=== PATIENT | female | born 1990 | race American Indian/Alaskan Native ===

== ENCOUNTER 2019-03-17 05:31 | Inpatient (IN) | payer MEDICAID, OTHER, SELFPAY ==
[~2019-03-17 05:31] MED LIST: Citric Acid/Sodium Citrate Solution 30 ML Cup PO ONE; Metoclopramide 10 MG/2 ML SDV IVPUSH ONE; Nalbuphine 10 MG/ML Syringe IVPUSH PRN; Oxytocin/Lactated Ringers 10 UNIT/1,000 ML BAG IV SCH; Sodium Chloride 0.9% 10 ML Syringe FLUSH PRN; ceFAZolin 2 GM in Premix Bag 1 BAG IV ONE
[2019-03-17] MEDS ORDERED: Bupivacaine 0.5% 30 ML SDV ONE (06:53)
[2019-03-17] MEDS ORDERED: Metoclopramide 10 MG/2 ML SDV ONE (07:18)
[2019-03-17] MEDS ORDERED: Citric Acid/Sodium Citrate Solution 30 ML Cup ONE (07:18)
[2019-03-17] MEDS: Lactated Ringers 1,000 ML IV SCH (07:22)
[2019-03-17] MEDS ORDERED: Morphine PF 10 MG/10 ML SDV ONE (07:31)
[2019-03-17] MEDS ORDERED: Ketorolac 30 MG/ML SDV ONE (07:31)
[2019-03-17] MEDS ORDERED: Ondansetron 4 MG/2 ML SDV ONE (07:31)
[2019-03-17] MEDS ORDERED: Lactated Ringers 2,000 ML ONE (07:31)
[2019-03-17] MEDS ORDERED: Oxytocin 10 Units/1 ML SDV ONE (07:31)
[2019-03-17] MEDS ORDERED: ceFAZolin 1 GM Vial ONE (07:31)
[2019-03-17] MEDS ORDERED: Phenylephrine/Normal Saline 100 MCG/ML 10 ML Syringe ONE (08:22)
[2019-03-17] MEDS ORDERED: fentaNYL 100 MCG/2 ML SDV ONE (08:26)
[2019-03-17] MEDS ORDERED: Dexamethasone 4 MG/ML SDV ONE (08:27)
[2019-03-17] MEDS ORDERED: Ondansetron 4 MG/2 ML SDV IVPUSH PRN ×2 (08:52→17:48)
[2019-03-17] MEDS ORDERED: diphenhydrAMINE 50 MG/ML SDV IVPUSH PRN ×2 (08:52→10:23)
[2019-03-17] MEDS ORDERED: fentaNYL 100 MCG/2 ML SDV IVPUSH PRN (08:52)
--- NOTE | 2019-03-17 08:52 | PCM.PREANE ---
Preanesthetic Assessment - Anesthesia/Transfusion/Family Hx Anesthesia History: Prior Anesthesia Without Reaction Family History of Anesthesia Reaction: No Transfusion History: No Prior Transfusion(s) - Review of Systems General: No Symptoms Pulmonary: No Symptoms Cardiovascular: No Symptoms Gastrointestinal: No Symptoms Neurological: No Symptoms Other: Reports: None (Anemia) - Physical Assessment NPO Status Date: 03/16/19 NPO Status Time: 18:00 Vital Signs: Last Vital Signs Temp 36.3 C 03/17/19 05:47 Pulse 61 03/17/19 05:45 Resp 18 03/17/19 05:47 BP 109/70 03/17/19 05:45 Pulse Ox Height: 1.6 m Weight: 59.874 kg ASA Class: 2 Mental Status: Alert & Oriented x3 Airway Class: Mallampati = 1 Dentition: Reports: Broken Tooth/Teeth Thyro-Mental Finger Breadths: 3 Mouth Opening Finger Breadths: 3 ROM/Head Extension: Full Lungs: Clear to Auscultation, Normal Respiratory Effort Cardiovascular: Regular Rate, Regular Rhythm - Lab Values: Laboratory Last Values WBC 5.73 K/mm3 (3.98-10.04) 03/17/19 06:11 RBC 4.69 M/mm3 (3.98-5.22) 03/17/19 06:11 Hgb 10.2 gm/dl (11.2-15.7) L 03/17/19 06:11 Hct 33.5 % (34.1-44.9) L 03/17/19 06:11 MCV 71.4 fl (79.4-94.8) L 03/17/19 06:11 MCH 21.7 pg (25.6-32.2) L 03/17/19 06:11 MCHC 30.4 g/dl (32.2-35.5) L 03/17/19 06:11 RDW Std Deviation 43.0 fL (36.4-46.3) 03/17/19 06:11 Plt Count 294 K/mm3 (182-369) 03/17/19 06:11 MPV 10.3 fl (9.4-12.3) 03/17/19 06:11 Neut % (Auto) 68.2 % (34.0-71.1) 03/17/19 06:11 Lymph % (Auto) 23.4 % (19.3-51.7) 03/17/19 06:11 [place] % (Auto) 6.5 % (4.7-12.5) 03/17/19 06:11 Eos % (Auto) 1.0 (0.7-5.8) 03/17/19 06:11 Baso % (Auto) 0.7 % (0.1-1.2) 03/17/19 06:11 Neut # (Auto) 3.91 K/mm3 (1.56-6.13) 03/17/19 06:11 Lymph # (Auto) 1.34 K/mm3 (1.18-3.74) 03/17/19 06:11 [place] # (Auto) 0.37 K/mm3 (0.24-0.36) H 03/17/19 06:11 Eos # (Auto) 0.06 K/mm3 (0.04-0.36) 03/17/19 06:11 Baso # (Auto) 0.04 K/mm3 (0.01-0.08) 03/17/19 06:11 Manual Slide Review Abnormal smear 03/17/19 06:11 Urine Color Yellow (Yellow) 03/17/19 06:35 Urine Appearance Clear (Clear) 03/17/19 06:35 Urine pH 7.0 (5.0-8.0) 03/17/19 06:35 Ur Specific [place] 1.020 (1.005-1.030) 03/17/19 06:35 Urine Protein Negative (Negative) 03/17/19 06:35 Urine Glucose (UA) Negative (Negative) 03/17/19 06:35 Urine Ketones Negative (Negative) 03/17/19 06:35 Urine Occult Blood Negative (Negative) 03/17/19 06:35 Urine Nitrite Negative (Negative) 03/17/19 06:35 Urine Bilirubin Negative (Negative) 03/17/19 06:35 Urine Urobilinogen 0.2 (0.2-1.0) 03/17/19 06:35 Ur Leukocyte Esterase Negative (Negative) 03/17/19 06:35 Urine Opiates Screen Negative (OMIWTW=101) 03/17/19 06:35 Ur Buprenorphine Scrn Negative (CUTOFF=10) 03/17/19 06:35 Ur Oxycodone Screen Negative (UNJ0YR=842) 03/17/19 06:35 Urine Methadone Screen Negative (JLEPIF=698) 03/17/19 06:35 Ur Propoxyphene Screen Negative (XIJLST=546) 03/17/19 06:35 Ur Barbiturates Screen Negative (YDEXRG=011) 03/17/19 06:35 Ur Tricyclics Screen Negative (FRXQXI=094) 03/17/19 06:35 Ur Phencyclidine Scrn Negative (CUTOFF=25) 03/17/19 06:35 Ur Amphetamine Screen Negative (OUXBFA=455) 03/17/19 06:35 U Methamphetamines Scrn Negative (VWRGQM=461) 03/17/19 06:35 U Benzodiazepines Scrn Negative (MNSUCG=179) 03/17/19 06:35 U Cocaine Metab Screen Negative (LTUPGK=413) 03/17/19 06:35 U Marijuana (THC) Screen Presumptive positive (CUTOFF=50) H 03/17/19 06:35 Blood Type O POSITIVE 03/17/19 06:11 Gel Antibody Screen Negative 03/17/19 06:11 - Allergies Allergies/Adverse Reactions: Allergies Allergy/AdvReac Type Severity Reaction Status Date / Time amoxicillin Allergy Intermediate Hives Verified 03/17/19 06:17 - Acknowledgements Anesthesia Type Planned: Spinal Pt an Appropriate Candidate for the Planned Anesthesia: Yes Alternatives and Risks of Anesthesia Discussed w Pt/Guardian: Yes Pt/Guardian Understands and Agrees with Anesthesia Plan: Yes PreAnesthesia Questionnaire [employer] History: Reports: - SUBSTANCE USE Smoking Status *Q: Never Smoker Second Hand Smoke Exposure: No Recreational Drug Use History: No - HOME MEDS Home Medications: Home Meds Mv-Mn/Iron/FA/Herbal/Digestive [ One Tablet] 1 tab PO DAILY 03/17/19 [ History] - CURRENT (IN HOUSE) MEDS Current Meds: Current Medications Lactated Ringer's (Ringers, Lactated) 1,000 mls @ 125 mls/hr IV ASDIRECTED [facility] Last Admin: 03/17/19 07:22 Dose: 125 mls/hr Oxytocin/Lactated Ringer's (Pitocin In Lr 10 Units/1,000 Ml) 10 unit in 1,000 mls @ 100 mls/hr IV ASDIRECTED [facility] Nalbuphine HCl (Nubain) 10 mg IVPUSH Q2H PRN PRN Reason: Pain Sodium Chloride (Saline Flush) 10 ml FLUSH ASDIRECTED PRN PRN Reason: Keep Vein Open Discontinued Medications Bupivacaine HCl (Marcaine 0.5%) Confirm Administered Dose 30 ml .ROUTE .[facility] ONE Stop: 03/17/19 06:54 Cefazolin Sodium (Ancef) Confirm Administered Dose 2 gm .ROUTE .[facility] ONE Stop: 03/17/19 07:32 Citric Acid/Sodium Citrate (Bicitra Solution) 30 ml PO ONETIME ONE Stop: 03/17/19 00:26 Last Admin: 03/17/19 07:22 Dose: 30 ml Citric Acid/Sodium Citrate (Bicitra Solution) Confirm Administered Dose 30 ml .ROUTE .[facility] ONE Stop: 03/17/19 07:19 Last Admin: 03/17/19 07:41 Dose: Not Given Dexamethasone (Dexamethasone) Confirm Administered Dose 4 mg .ROUTE .[facility] ONE Stop: 03/17/19 08:28 Fentanyl (Sublimaze) Confirm Administered Dose 100 mcg .ROUTE .[facility] ONE Stop: 03/17/19 08:27 Cefazolin Sodium/Dextrose 2 gm (/ Premix) 50 mls @ 100 mls/hr IV ONETIME ONE Stop: 03/17/19 00:54 Last Admin: 03/17/19 07:41 Dose: Not Given Lactated Ringer's (Ringers, Lactated) Confirm Administered Dose 2,000 mls @ as directed .ROUTE .[facility] ONE Stop: 03/17/19 07:32 Ketorolac Tromethamine (Toradol) Confirm Administered Dose 30 mg .ROUTE .[facility] ONE Stop: 03/17/19 07:32 Metoclopramide HCl (Reglan) 10 mg IVPUSH ONETIME ONE Stop: 03/17/19 00:26 Last Admin: 03/17/19 07:22 Dose: 10 mg Metoclopramide HCl (Reglan) Confirm Administered Dose 10 mg .ROUTE .[facility] ONE Stop: 03/17/19 07:19 Last Admin: 03/17/19 07:41 Dose: Not Given Morphine Sulfate (Duramorph Pf) Confirm Administered Dose 10 mg .ROUTE .[facility] ONE Stop: 03/17/19 07:32 Ondansetron HCl (Zofran) Confirm Administered Dose 4 mg .ROUTE .[facility] ONE Stop: 03/17/19 07:32 Oxytocin (Pitocin) Confirm Administered Dose 20 unit .ROUTE .[facility] ONE Stop: 03/17/19 07:32 Phenylephrine HCl (Phenylephrine In Ns 100 Mcg/Ml) Confirm Administered Dose 1 mg .ROUTE .[facility] ONE Stop: 03/17/19 08:23
--- NOTE | 2019-03-17 08:52 | PCM.POSTAN ---
POST ANESTHESIA ASSESSMENT - MENTAL STATUS Mental Status: Alert, Oriented - VITAL SIGNS Vital Signs: Last Vital Signs Temp 36.3 C 03/17/19 05:47 Pulse 61 03/17/19 05:45 Resp 18 03/17/19 05:47 BP 109/70 03/17/19 05:45 Pulse Ox 0844 101/58 69 11 97.4F 98% - RESPIRATORY Respiratory Status: Respiratory Rate WNL, Airway Patent, O2 Saturation Stable - CARDIOVASCULAR CV Status: Pulse Rate WNL, Blood Pressure Stable - GASTROINTESTINAL GI Status: No Symptoms - PAIN Pain Score: 0 - POST OP HYDRATION Hydration Status: Adequate & Stable
--- NOTE | 2019-03-17 09:05 | PCM.OPNOTE ---
- General Post-Op/Procedure Note Date of Surgery/Procedure: 03/17/19 Operative Procedure(s): Repeat Findings: Normal pelvic anatomy Pre Op Diagnosis: prior Post-Op Diagnosis: Same Anesthesia Technique: Spinal Primary Surgeon: Thuy Harvey Medical Referral Coordinator: Dionisio Yee Fluid Replacement, Intraop: 1,800 Output, Urine Amount: 200 EBL in mLs: 600 Complications: None Condition: Good Free Text/Narrative:: The patient was taken to the operating room where epidural anesthesia was dosed to surgical levels without difficulty. The patient was prepped and draped in the usual sterile fashion in the dorsal supine position with a leftward tilt. A Pfannenstiel skin incision was made with the scalpel and carried through to the underlying layer of fascia. The fascia was incised in the midline and extended laterally using Colon scissors. Mahendra clamps were used to elevate the superior aspect of the fascial incision, which was elevated, and the underlying rectus muscles were dissected off bluntly and using Colon scissors. Attention was then turned to the inferior aspect of the fascial incision, which in similar fashion was grasped with Mahendra clamps, elevated, and the underlying rectus muscles were dissected off bluntly and using the colon. The rectus muscles were dissected in the midline. The peritoneum was entered bluntly; this incision was extended superiorly and inferiorly with good visualization of the bladder. The bladder blade was inserted. The vesicouterine peritoneum was identified and entered sharply using Metzenbaum scissors. This incision was extended laterally and the bladder flap was created digitally. The bladder blade was reinserted. The lower uterine segment was incised in a transverse fashion using the scalpel and with digital traction. Clear fluid was noted. The was subsequently delivered by flexing the head to the incision. Body and shoulders followed without difficulty. The cord was clamped and cut. The was subsequently handed to the awaiting health care technician whose presence had been requested.. The placenta was delivered spontaneously intact with a three-vessel cord noted. The uterus was exteriorized and cleared of all clots and debris. The uterine incision was repaired in 2 layers using 0 monocryl. Hemostasis was visualized. Hemostasis was visualized bilaterally. The uterus was returned to the abdomen. The uterine incision was reexamined and it was noted to be hemostatic. The pelvis was copiously irrigated. The fascia was closed with 1 PDS suture, and the skin was closed with 3-0 monocryl. Sponge, lap, and instrument counts were correct x2. The patient was stable at the completion of the procedure and was subsequently transferred to the recovery room in stable condition.
[2019-03-17] MEDS ORDERED: Naloxone 0.4 MG/ML SDV IVPUSH PRN (10:23)
[2019-03-17] MEDS ORDERED: Dextrose 5%-Lactated Ringers 1,000 ML IV SCH (10:23)
[2019-03-17] MEDS ORDERED: Acetaminophen/oxyCODONE 325-5 MG Tab PO PRN (10:23)
[2019-03-17] MEDS ORDERED: ePHEDrine 50 MG/ML SDV IVPUSH PRN (10:23)
[2019-03-17] MEDS: Acetaminophen/oxyCODONE 325-5 MG Tab PO PRN (19:53)
[2019-03-17] MEDS: Docusate Sodium 100 MG Cap PO PRN (19:53)
[2019-03-17] MEDS: Ibuprofen 600 MG Tab PO PRN (19:56)
[2019-03-18] MEDS: Acetaminophen/oxyCODONE 325-5 MG Tab PO PRN ×3 (06:47→19:10)
--- NOTE | 2019-03-18 08:09 | PCM.PNPP ---
- General Info Date of Service: 03/18/19 Functional Status: Reports: Pain Controlled - Review of Systems General: Reports: No Symptoms HEENT: Reports: No Symptoms Pulmonary: Reports: No Symptoms Cardiovascular: Reports: No Symptoms Gastrointestinal: Reports: No Symptoms Genitourinary: Reports: No Symptoms Musculoskeletal: Reports: No Symptoms Skin: Reports: No Symptoms Neurological: Reports: No Symptoms Psychiatric: Reports: No Symptoms - General Info Date of Service: 03/18/19 - Patient Data Vital Signs - Most Recent: Last Vital Signs Temp 36.7 C 03/18/19 05:14 Pulse 64 03/18/19 05:14 Resp 16 03/18/19 06:00 BP 97/67 03/18/19 05:14 Pulse Ox 100 03/18/19 06:00 Weight - Most Recent: 59.874 kg I&O - Last 24 Hours: Intake & Output 03/17/19 03/18/19 03/18/19 22:59 06:59 14:59 Intake Total 4120 975 Output Total 750 1300 Balance 3370 -325 Lab Results - Last 24 Hours: Laboratory Results - last 24 hr 03/17/19 03/17/19 03/18/19 Range/Units 06:11 06:35 05:20 WBC 9.19 (3.98-10.04) K/mm3 RBC 3.32 L (3.98-5.22) M/mm3 Hgb 7.2 L* D (11.2-15.7) gm/dl Hct 24.2 L (34.1-44.9) % MCV 72.9 L (79.4-94.8) fl MCH 21.7 L (25.6-32.2) pg MCHC 29.8 L (32.2-35.5) g/dl RDW Std Deviation 42.1 (36.4-46.3) fL Plt Count 229 (182-369) K/mm3 MPV 11.0 (9.4-12.3) fl Neut % (Auto) 72.9 H (34.0-71.1) % Lymph % (Auto) 18.6 L (19.3-51.7) % [place] % (Auto) 7.6 (4.7-12.5) % Eos % (Auto) 0.5 L (0.7-5.8) Baso % (Auto) 0.3 (0.1-1.2) % Neut # (Auto) 6.69 H (1.56-6.13) K/mm3 Lymph # (Auto) 1.71 (1.18-3.74) K/mm3 [place] # (Auto) 0.70 H (0.24-0.36) K/mm3 Eos # (Auto) 0.05 (0.04-0.36) K/mm3 Baso # (Auto) 0.03 (0.01-0.08) K/mm3 Manual Slide Review Abnormal smear Urine Opiates Screen Negative (TOQCPC=607) Ur Buprenorphine Scrn Negative (CUTOFF=10) Ur Oxycodone Screen Negative (BVQ1UB=424) Urine Methadone Screen Negative (XKTADK=131) Ur Propoxyphene Screen Negative (NBBEON=717) Ur Barbiturates Screen Negative (IAYMPF=411) Ur Tricyclics Screen Negative (PMZLNY=699) Ur Phencyclidine Scrn Negative (CUTOFF=25) Ur Amphetamine Screen Negative (GPTGRK=062) U Methamphetamines Scrn Negative (UIQXOK=399) U Benzodiazepines Scrn Negative (DHZIQP=567) U Cocaine Metab Screen Negative (JKOHRY=697) U Marijuana (THC) Screen Presumptive positive H (CUTOFF=50) RPR Non-reactive (NONREACTIVE) Med Orders - Current: Current Medications Diphenhydramine HCl (Benadryl) 25 mg IVPUSH Q6H PRN PRN Reason: Itching or Nausea Docusate Sodium (Colace) 100 mg PO Q12H PRN PRN Reason: Constipation Last Admin: 03/17/19 19:53 Dose: 100 mg Ephedrine Sulfate (Ephedrine Sulfate) 5 mg IVPUSH SEECOMMENT PRN PRN Reason: Other Ibuprofen (Motrin) 600 mg PO Q6H PRN PRN Reason: mild pain or fever Last Admin: 03/17/19 19:56 Dose: 600 mg Naloxone HCl (Narcan) 0.1 mg IVPUSH SEECOMMENT PRN PRN Reason: Respiratory Depression Ondansetron HCl (Zofran) 4 mg IVPUSH Q4HR PRN PRN Reason: Nausea Last Admin: 03/17/19 18:19 Dose: 4 mg Oxycodone/Acetaminophen (Percocet 325-5 Mg) 1 tab PO Q6H PRN PRN Reason: Pain (moderate 4-6) Oxycodone/Acetaminophen (Percocet 325-5 Mg) 2 tab PO Q6H PRN PRN Reason: Pain (severe 7-10) Last Admin: 03/18/19 06:47 Dose: 2 tab Discontinued Medications Bupivacaine HCl (Marcaine 0.5%) Confirm Administered Dose 30 ml .ROUTE .[facility] ONE Stop: 03/17/19 06:54 Last Admin: 03/17/19 08:12 Dose: 15 ml Cefazolin Sodium (Ancef) Confirm Administered Dose 2 gm .ROUTE .[facility] ONE Stop: 03/17/19 07:32 Citric Acid/Sodium Citrate (Bicitra Solution) 30 ml PO ONETIME ONE Stop: 03/17/19 00:26 Last Admin: 03/17/19 07:22 Dose: 30 ml Citric Acid/Sodium Citrate (Bicitra Solution) Confirm Administered Dose 30 ml .ROUTE .[facility] ONE Stop: 03/17/19 07:19 Last Admin: 03/17/19 07:41 Dose: Not Given Dexamethasone (Dexamethasone) Confirm Administered Dose 4 mg .ROUTE .[facility] ONE Stop: 03/17/19 08:28 Diphenhydramine HCl (Benadryl) 25 mg IVPUSH Q6H PRN PRN Reason: Pruritis Fentanyl (Sublimaze) Confirm Administered Dose 100 mcg .ROUTE .[facility] ONE Stop: 03/17/19 08:27 Fentanyl (Sublimaze) 50 mcg IVPUSH Q5M PRN PRN Reason: Pain Cefazolin Sodium/Dextrose 2 gm (/ Premix) 50 mls @ 100 mls/hr IV ONETIME ONE Stop: 03/17/19 00:54 Last Admin: 03/17/19 07:41 Dose: Not Given Lactated Ringer's (Ringers, Lactated) 1,000 mls @ 125 mls/hr IV ASDIRECTED [facility] Last Admin: 03/17/19 07:22 Dose: 125 mls/hr Oxytocin/Lactated Ringer's (Pitocin In Lr 10 Units/1,000 Ml) 10 unit in 1,000 mls @ 100 mls/hr IV ASDIRECTED [facility] Lactated Ringer's (Ringers, Lactated) Confirm Administered Dose 2,000 mls @ as directed .ROUTE .[facility] ONE Stop: 03/17/19 07:32 Dextrose/Lactated Ringer's (Dextrose 5%-Lactated Ringers) 1,000 mls @ 125 mls/ hr IV ASDIRECTED [facility] Stop: 03/17/19 18:22 Last Admin: 03/17/19 16:01 Dose: 125 mls/hr Ketorolac Tromethamine (Toradol) Confirm Administered Dose 30 mg .ROUTE .[facility] ONE Stop: 03/17/19 07:32 Metoclopramide HCl (Reglan) 10 mg IVPUSH ONETIME ONE Stop: 03/17/19 00:26 Last Admin: 03/17/19 07:22 Dose: 10 mg Metoclopramide HCl (Reglan) Confirm Administered Dose 10 mg .ROUTE .[facility] ONE Stop: 03/17/19 07:19 Last Admin: 03/17/19 07:41 Dose: Not Given Morphine Sulfate (Duramorph Pf) Confirm Administered Dose 10 mg .ROUTE .[facility] ONE Stop: 03/17/19 07:32 Nalbuphine HCl (Nubain) 10 mg IVPUSH Q2H PRN PRN Reason: Pain Ondansetron HCl (Zofran) Confirm Administered Dose 4 mg .ROUTE .[facility] ONE Stop: 03/17/19 07:32 Ondansetron HCl (Zofran) 4 mg IVPUSH ONETIME PRN PRN Reason: Nausea/Vomiting Oxytocin (Pitocin) Confirm Administered Dose 20 unit .ROUTE .[facility] ONE Stop: 03/17/19 07:32 Phenylephrine HCl (Phenylephrine In Ns 100 Mcg/Ml) Confirm Administered Dose 1 mg .ROUTE .[facility] ONE Stop: 03/17/19 08:23 Sodium Chloride (Saline Flush) 10 ml FLUSH ASDIRECTED PRN PRN Reason: Keep Vein Open - Interaction Support Person: - Recovery Exam Fundal Tone: Firm Fundal Level: 1 Fingerbreadths Below Umbilicus Fundal Placement: Midline Lochia Amount: Small Lochia Color: Rubra/Red Perineum Description: Intact, Minimal Bruising/Swelling Episiotomy/Laceration: None Bladder Status: Indwelling Catheter in Place Urinary Elimination: Indwelling Catheter - Exam General: Alert, Oriented HEENT: Pupils Equal Neck: Supple Lungs: Clear to Auscultation, Normal Respiratory Effort Cardiovascular: Regular Rate, Regular Rhythm GI/Abdominal Exam: Normal Bowel Sounds, Soft, Non-Tender, No Organomegaly, No Distention, No Abnormal Bruit, No Mass, Pelvis Stable Extremities: Normal Inspection, Normal Range of Motion, Non-Tender, No Pedal Edema, Normal Capillary Refill Skin: Warm, Dry, Intact Wound/Incisions: Healing Well Neurological: No New Focal Deficit Psy/Mental Status: Alert, Normal Affect, Normal Mood - Problem List Review Problem List Initiated/Reviewed/Updated: Yes - My Orders Last 24 Hours: My Active Orders 03/17/19 10:23 Communication Order [RC] PER UNIT ROUTINE Communication Order [RC] PER UNIT ROUTINE Notify Provider Intake and Out [RC] ASDIRECTED Vital Signs [RC] Q1HR Acetaminophen/oxyCODONE [Percocet 325-5 MG] 1 tab PO Q6H PRN Acetaminophen/oxyCODONE [Percocet 325-5 MG] 2 tab PO Q6H PRN Docusate Sodium [Colace] 100 mg PO Q12H PRN Naloxone [Narcan] 0.1 mg IVPUSH SEECOMMENT PRN diphenhydrAMINE [Benadryl] 25 mg IVPUSH Q6H PRN ePHEDrine [ePHEDrine sulfate] 5 mg IVPUSH SEECOMMENT PRN Assess Lochia [WOMSER] Per Unit Routine Assess Uterine Involution [WOMSER] Per Unit Routine Medication Administration Instruction [OM.PC] Routine 03/17/19 13:30 Ibuprofen [Motrin] 600 mg PO Q6H PRN 03/17/19 17:48 Ondansetron [Zofran] 4 mg IVPUSH Q4HR PRN 03/17/19 Lunch Regular Diet [DIET] - Assessment Assessment:: 29 year old POD1 from [facility] -anemia baseline lower this morning - tolerating well -pain controlled.
[2019-03-18] MEDS: Ibuprofen 600 MG Tab PO PRN ×3 (10:06→22:38)
[2019-03-18] MEDS ORDERED: Measles, Mumps & Rubella Vaccine 0.5 ML SDV SUBCUT ONE (14:54)
[2019-03-19] MEDS: Acetaminophen/oxyCODONE 325-5 MG Tab PO PRN ×3 (03:26→20:23)
[2019-03-19] MEDS: Docusate Sodium 100 MG Cap PO PRN ×2 (05:47→20:23)
[2019-03-19] MEDS: Ibuprofen 600 MG Tab PO PRN ×2 (05:47→18:07)
--- NOTE | 2019-03-19 06:43 | PCM.PNPP ---
- General Info Date of Service: 03/19/19 Functional Status: Reports: Pain Controlled - Review of Systems General: Reports: No Symptoms HEENT: Reports: No Symptoms Pulmonary: Reports: No Symptoms Cardiovascular: Reports: No Symptoms Gastrointestinal: Reports: No Symptoms Genitourinary: Reports: No Symptoms Musculoskeletal: Reports: No Symptoms Skin: Reports: No Symptoms Neurological: Reports: No Symptoms Psychiatric: Reports: No Symptoms - General Info Date of Service: 03/19/19 - Patient Data Vital Signs - Most Recent: Last Vital Signs Temp 36.7 C 03/19/19 03:29 Pulse 83 03/19/19 03:29 Resp 16 03/19/19 03:29 BP 117/75 03/19/19 03:29 Pulse Ox 99 03/19/19 03:29 Weight - Most Recent: 59.874 kg I&O - Last 24 Hours: Intake & Output 03/18/19 03/18/19 03/19/19 14:59 22:59 06:59 Intake Total 120 320 Output Total 1250 900 Balance -1130 -580 Lab Results - Last 24 Hours: Laboratory Results - last 24 hr 03/18/19 Range/Units 05:20 Manual Slide Review Abnormal smear Med Orders - Current: Current Medications Diphenhydramine HCl (Benadryl) 25 mg IVPUSH Q6H PRN PRN Reason: Itching or Nausea Docusate Sodium (Colace) 100 mg PO Q12H PRN PRN Reason: Constipation Last Admin: 03/19/19 05:47 Dose: 100 mg Ephedrine Sulfate (Ephedrine Sulfate) 5 mg IVPUSH SEECOMMENT PRN PRN Reason: Other Ibuprofen (Motrin) 600 mg PO Q6H PRN PRN Reason: mild pain or fever Last Admin: 03/19/19 05:47 Dose: 600 mg Naloxone HCl (Narcan) 0.1 mg IVPUSH SEECOMMENT PRN PRN Reason: Respiratory Depression Ondansetron HCl (Zofran) 4 mg IVPUSH Q4HR PRN PRN Reason: Nausea Last Admin: 03/17/19 18:19 Dose: 4 mg Oxycodone/Acetaminophen (Percocet 325-5 Mg) 1 tab PO Q6H PRN PRN Reason: Pain (moderate 4-6) Oxycodone/Acetaminophen (Percocet 325-5 Mg) 2 tab PO Q6H PRN PRN Reason: Pain (severe 7-10) Last Admin: 03/19/19 03:26 Dose: 2 tab Discontinued Medications Bupivacaine HCl (Marcaine 0.5%) Confirm Administered Dose 30 ml .ROUTE .[facility] ONE Stop: 03/17/19 06:54 Last Admin: 03/17/19 08:12 Dose: 15 ml Cefazolin Sodium (Ancef) Confirm Administered Dose 2 gm .ROUTE .[facility] ONE Stop: 03/17/19 07:32 Citric Acid/Sodium Citrate (Bicitra Solution) 30 ml PO ONETIME ONE Stop: 03/17/19 00:26 Last Admin: 03/17/19 07:22 Dose: 30 ml Citric Acid/Sodium Citrate (Bicitra Solution) Confirm Administered Dose 30 ml .ROUTE .[facility] ONE Stop: 03/17/19 07:19 Last Admin: 03/17/19 07:41 Dose: Not Given Dexamethasone (Dexamethasone) Confirm Administered Dose 4 mg .ROUTE .[facility] ONE Stop: 03/17/19 08:28 Diphenhydramine HCl (Benadryl) 25 mg IVPUSH Q6H PRN PRN Reason: Pruritis Fentanyl (Sublimaze) Confirm Administered Dose 100 mcg .ROUTE .[facility] ONE Stop: 03/17/19 08:27 Fentanyl (Sublimaze) 50 mcg IVPUSH Q5M PRN PRN Reason: Pain Cefazolin Sodium/Dextrose 2 gm (/ Premix) 50 mls @ 100 mls/hr IV ONETIME ONE Stop: 03/17/19 00:54 Last Admin: 03/17/19 07:41 Dose: Not Given Lactated Ringer's (Ringers, Lactated) 1,000 mls @ 125 mls/hr IV ASDIRECTED [facility] Last Admin: 03/17/19 07:22 Dose: 125 mls/hr Oxytocin/Lactated Ringer's (Pitocin In Lr 10 Units/1,000 Ml) 10 unit in 1,000 mls @ 100 mls/hr IV ASDIRECTED [facility] Lactated Ringer's (Ringers, Lactated) Confirm Administered Dose 2,000 mls @ as directed .ROUTE [facility] ONE Stop: 03/17/19 07:32 Dextrose/Lactated Ringer's (Dextrose 5%-Lactated Ringers) 1,000 mls @ 125 mls/ hr IV ASDIRECTED [facility] Stop: 03/17/19 18:22 Last Admin: 03/17/19 16:01 Dose: 125 mls/hr Ketorolac Tromethamine (Toradol) Confirm Administered Dose 30 mg .ROUTE [facility] ONE Stop: 03/17/19 07:32 Measles/Mumps/Rubella Vaccine Live (M-M-R Ii Vaccine) 0.5 ml SUBCUT .[facility]CE ONE Stop: 03/18/19 14:55 Last Admin: 03/18/19 15:22 Dose: 0.5 ml Metoclopramide HCl (Reglan) 10 mg IVPUSH ONETIME ONE Stop: 03/17/19 00:26 Last Admin: 03/17/19 07:22 Dose: 10 mg Metoclopramide HCl (Reglan) Confirm Administered Dose 10 mg .ROUTE [facility] ONE Stop: 03/17/19 07:19 Last Admin: 03/17/19 07:41 Dose: Not Given Morphine Sulfate (Duramorph Pf) Confirm Administered Dose 10 mg .ROUTE [facility] ONE Stop: 03/17/19 07:32 Nalbuphine HCl (Nubain) 10 mg IVPUSH Q2H PRN PRN Reason: Pain Ondansetron HCl (Zofran) Confirm Administered Dose 4 mg .ROUTE [facility] ONE Stop: 03/17/19 07:32 Ondansetron HCl (Zofran) 4 mg IVPUSH ONETIME PRN PRN Reason: Nausea/Vomiting Oxytocin (Pitocin) Confirm Administered Dose 20 unit .ROUTE [facility] ONE Stop: 03/17/19 07:32 Phenylephrine HCl (Phenylephrine In Ns 100 Mcg/Ml) Confirm Administered Dose 1 mg .ROUTE [facility] ONE Stop: 03/17/19 08:23 Sodium Chloride (Saline Flush) 10 ml FLUSH ASDIRECTED PRN PRN Reason: Keep Vein Open - Infant Interaction Support Person: - Recovery Exam Fundal Tone: Firm Fundal Level: 1 Fingerbreadths Below Umbilicus Fundal Placement: Midline Lochia Amount: Scant, Small Lochia Color: Rubra/Red Perineum Description: Intact, Minimal Bruising/Swelling Episiotomy/Laceration: None Bladder Status: Voiding Urinary Elimination: Voided - Exam General: Alert, Oriented HEENT: Pupils Equal Neck: Supple Lungs: Clear to Auscultation, Normal Respiratory Effort Cardiovascular: Regular Rate, Regular Rhythm GI/Abdominal Exam: Normal Bowel Sounds, Soft, Non-Tender, No Organomegaly, No Distention, No Abnormal Bruit, No Mass, Pelvis Stable, Other (incision open slightly at midportion. Not enough to pack. Steristrips replaced) Extremities: Normal Inspection, Normal Range of Motion, Non-Tender, No Pedal Edema, Normal Capillary Refill Neurological: No New Focal Deficit - Problem List Review Problem List Initiated/Reviewed/Updated: Yes - My Orders Last 24 Hours: My Active Orders 03/18/19 14:54 Vaccines to be Administered [RC] PER UNIT ROUTINE 03/19/19 05:50 CBC WITH AUTO DIFF [HEME] Routine - Assessment Assessment:: 29 year old POD1 from [facility] -anemia baseline lower this morning - tolerating well -pain controlled.
--- NOTE | 2019-03-19 18:26 | PCM48HPAN ---
Post Anesthesia Note - EVALUATION WITHIN 48HRS OF ANESTHETIC Vital Signs in Normal Range: Yes Patient Participated in Evaluation: No (chart reviewed) Respiratory Function Stable: Yes Airway Patent: Yes Cardiovascular Function Stable: Yes Hydration Status Stable: Yes Pain Control Satisfactory: Yes Nausea and Vomiting Control Satisfactory: Yes Mental Status Recovered: Yes Vital Signs: Last Vital Signs Temp 98.1 F 03/19/19 15:07 Pulse 70 03/19/19 15:07 Resp 16 03/19/19 15:07 BP 121/95 H 03/19/19 15:07 Pulse Ox 97 03/19/19 15:07
[2019-03-20] MEDS: Ibuprofen 600 MG Tab PO PRN (02:59)
--- NOTE | 2019-03-20 08:27 | PCM.DCSUM1 ---
Discharge Summary - Hospital Course Diagnosis: Stroke: No - Discharge Data Discharge Date: 03/20/19 Discharge Disposition: Home, Self-Care 01 Condition: Good - Referral to Home Health Primary Care Physician: Thuy Harvey MD - Patient Summary/Data Operative Procedure(s) Performed: Repeat Consults: Consultations 03/19/19 10:08 Consult to Case Management/Rn Homecare [CONS] Routine - Patient Instructions Diet: Usual Diet as Tolerated Driving: Do Not Drive Showering/Bathing: May Shower Wound/Incision Care: Keep Operative Site/Wound Site Clean and Dry Notify Provider of: Fever - Discharge Plan *PRESCRIPTION DRUG MONITORING PROGRAM REVIEWED*: No *COPY OF PRESCRIPTION DRUG MONITORING REPORT IN PATIENT BRITTNEY: No Home Medications: Home Meds Mv-Mn/Iron/FA/Herbal/Digestive [ One Tablet] 1 tab PO DAILY 03/17/19 [ History] Referrals: Thuy Harvey MD [Primary Care Provider] - (2 weeks) - Discharge Summary/Plan Comment DC Time >30 min.: Yes - General Info Date of Service: 03/20/19 Functional Status: Reports: Pain Controlled - Review of Systems General: Reports: No Symptoms HEENT: Reports: No Symptoms Pulmonary: Reports: No Symptoms Cardiovascular: Reports: No Symptoms Gastrointestinal: Reports: No Symptoms Genitourinary: Reports: No Symptoms Musculoskeletal: Reports: No Symptoms Skin: Reports: No Symptoms Neurological: Reports: No Symptoms Psychiatric: Reports: No Symptoms - Patient Data Vitals - Most Recent: Last Vital Signs Temp 37.1 C 03/20/19 02:55 Pulse 61 03/20/19 02:55 Resp 16 03/20/19 02:55 BP 112/69 03/20/19 02:55 Pulse Ox 97 03/20/19 02:55 Weight - Most Recent: 59.874 kg I&O - Last 24 hours: Intake & Output 03/19/19 03/20/19 03/20/19 22:59 06:59 14:59 Intake Total 640 Balance 640 Med Orders - Current: Current Medications Diphenhydramine HCl (Benadryl) 25 mg IVPUSH Q6H PRN PRN Reason: Itching or Nausea Docusate Sodium (Colace) 100 mg PO Q12H PRN PRN Reason: Constipation Last Admin: 03/19/19 20:23 Dose: 100 mg Ephedrine Sulfate (Ephedrine Sulfate) 5 mg IVPUSH SEECOMMENT PRN PRN Reason: Other Ibuprofen (Motrin) 600 mg PO Q6H PRN PRN Reason: mild pain or fever Last Admin: 03/20/19 02:59 Dose: 600 mg Naloxone HCl (Narcan) 0.1 mg IVPUSH SEECOMMENT PRN PRN Reason: Respiratory Depression Ondansetron HCl (Zofran) 4 mg IVPUSH Q4HR PRN PRN Reason: Nausea Last Admin: 03/17/19 18:19 Dose: 4 mg Oxycodone/Acetaminophen (Percocet 325-5 Mg) 1 tab PO Q6H PRN PRN Reason: Pain (moderate 4-6) Oxycodone/Acetaminophen (Percocet 325-5 Mg) 2 tab PO Q6H PRN PRN Reason: Pain (severe 7-10) Last Admin: 03/19/19 20:23 Dose: 2 tab Discontinued Medications Bupivacaine HCl (Marcaine 0.5%) Confirm Administered Dose 30 ml .ROUTE .STK-MED ONE Stop: 03/17/19 06:54 Last Admin: 03/17/19 08:12 Dose: 15 ml Cefazolin Sodium (Ancef) Confirm Administered Dose 2 gm .ROUTE .STK-MED ONE Stop: 03/17/19 07:32 Citric Acid/Sodium Citrate (Bicitra Solution) 30 ml PO ONETIME ONE Stop: 03/17/19 00:26 Last Admin: 03/17/19 07:22 Dose: 30 ml Citric Acid/Sodium Citrate (Bicitra Solution) Confirm Administered Dose 30 ml .ROUTE .STK-MED ONE Stop: 03/17/19 07:19 Last Admin: 03/17/19 07:41 Dose: Not Given Dexamethasone (Dexamethasone) Confirm Administered Dose 4 mg .ROUTE .STK-MED ONE Stop: 03/17/19 08:28 Diphenhydramine HCl (Benadryl) 25 mg IVPUSH Q6H PRN PRN Reason: Pruritis Fentanyl (Sublimaze) Confirm Administered Dose 100 mcg .ROUTE .STK-MED ONE Stop: 03/17/19 08:27 Fentanyl (Sublimaze) 50 mcg IVPUSH Q5M PRN PRN Reason: Pain Cefazolin Sodium/Dextrose 2 gm (/ Premix) 50 mls @ 100 mls/hr IV ONETIME ONE Stop: 03/17/19 00:54 Last Admin: 03/17/19 07:41 Dose: Not Given Lactated Ringer's (Ringers, Lactated) 1,000 mls @ 125 mls/hr IV ASDIRECTED [facility] Last Admin: 03/17/19 07:22 Dose: 125 mls/hr Oxytocin/Lactated Ringer's (Pitocin In Lr 10 Units/1,000 Ml) 10 unit in 1,000 mls @ 100 mls/hr IV ASDIRECTED [facility] Lactated Ringer's (Ringers, Lactated) Confirm Administered Dose 2,000 mls @ as directed .ROUTE .STK-MED ONE Stop: 03/17/19 07:32 Dextrose/Lactated Ringer's (Dextrose 5%-Lactated Ringers) 1,000 mls @ 125 mls/ hr IV ASDIRECTED [facility] Stop: 03/17/19 18:22 Last Admin: 03/17/19 16:01 Dose: 125 mls/hr Ketorolac Tromethamine (Toradol) Confirm Administered Dose 30 mg .ROUTE .STK- MED ONE Stop: 03/17/19 07:32 Measles/Mumps/Rubella Vaccine Live (M-M-R Ii Vaccine) 0.5 ml SUBCUT .ONCE ONE Stop: 03/18/19 14:55 Last Admin: 03/18/19 15:22 Dose: 0.5 ml Metoclopramide HCl (Reglan) 10 mg IVPUSH ONETIME ONE Stop: 03/17/19 00:26 Last Admin: 03/17/19 07:22 Dose: 10 mg Metoclopramide HCl (Reglan) Confirm Administered Dose 10 mg .ROUTE .STK-MED ONE Stop: 03/17/19 07:19 Last Admin: 03/17/19 07:41 Dose: Not Given Morphine Sulfate (Duramorph Pf) Confirm Administered Dose 10 mg .ROUTE .STK-MED ONE Stop: 03/17/19 07:32 Nalbuphine HCl (Nubain) 10 mg IVPUSH Q2H PRN PRN Reason: Pain Ondansetron HCl (Zofran) Confirm Administered Dose 4 mg .ROUTE .STK-MED ONE Stop: 03/17/19 07:32 Ondansetron HCl (Zofran) 4 mg IVPUSH ONETIME PRN PRN Reason: Nausea/Vomiting Oxytocin (Pitocin) Confirm Administered Dose 20 unit .ROUTE .STK-MED ONE Stop: 03/17/19 07:32 Phenylephrine HCl (Phenylephrine In Ns 100 Mcg/Ml) Confirm Administered Dose 1 mg .ROUTE .STK-MED ONE Stop: 03/17/19 08:23 Sodium Chloride (Saline Flush) 10 ml FLUSH ASDIRECTED PRN PRN Reason: Keep Vein Open - Exam General: Reports: Alert, Oriented HEENT: Reports: Pupils Equal, Pupils Reactive, EOMI, Mucous Membr. Moist/[place]ck: Reports: Supple Lungs: Reports: Clear to Auscultation, Normal Respiratory Effort Cardiovascular: Reports: Regular Rate, Regular Rhythm GI/Abdominal Exam: Normal Bowel Sounds, Soft, Non-Tender, No Organomegaly, No Distention, No Abnormal Bruit, No Mass, Pelvis Stable Back Exam: Reports: Normal Inspection, Full Range of Motion Extremities: Normal Inspection, Normal Range of Motion, Non-Tender, No Pedal Edema, Normal Capillary Refill Skin: Reports: Warm, Dry, Intact Wound/Incisions: Reports: Healing Well Neurological: Reports: No New Focal Deficit Psy/Mental Status: Reports: Alert, Normal Affect, Normal Mood
== END 2019-03-20 10:43 | disposition home or self-care (01) | DRG 788 ==
LOC: JD.OB 05:31
PROVIDERS: ADMIT Obstetrics & Gynecology; ATTEND Obstetrics & Gynecology
PROC: 10D00Z1 Extraction of Products of Conception, Low, Open Approach (ICD-10-PCS; principal; 2019-03-17)
PROC: 3E0234Z Introduction of Serum, Toxoid and Vaccine into Muscle, Percutaneous Approach (ICD-10-PCS; 2019-03-17)
DX: O34.211 Maternal care for low transverse scar from previous cesarean delivery (principal); O99.03 Anemia complicating the puerperium; Z23 Encounter for immunization; Z79.899 Other long term (current) drug therapy; Z88.0 Allergy status to penicillin; Z3A.38 38 weeks gestation of pregnancy; Z37.0 Single live birth
CPT/HCPCS: 01961; 36415; 59025; 80306; 81003; 85025; 86592; 86850; 86900; 86901; 90471; 90707; 94762; A9270-GY; J0690; J1100; J1885; J2270; J2370; J2405; J2590; J2765; J3010; J3490; J7120; J7121

== ENCOUNTER 2019-07-27 06:24 | Emergency (ER) | payer MEDICAID ==
[2019-07-27] MEDS ORDERED: Diphtheria,Pertussis(Acell),Tetanus Vaccine 0.5 ML Syringe IM ONE (07:00)
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
[2019-07-27] MEDS ORDERED: Ibuprofen 600 MG Tab PO ONE (07:16)
[2019-07-27] MEDS ORDERED: Acetaminophen/oxyCODONE 325-5 MG Tab PO ONE (07:17)
--- NOTE | 2019-07-27 07:54 | CT ---
Head CT Technique: Multiple axial sections through the brain were obtained. Intravenous contrast was not utilized. Comparison: No prior intracranial imaging is available. Findings: Ventricles along with basal cisterns and sulci over the convexities are within normal limits for the patient's age. No abnormal parenchymal densities are seen. No evidence of intracranial hemorrhage. No midline shift or mass-effect is seen. Soft tissue swelling is noted within the frontal scalp. Bone window settings show no acute calvarial abnormality. Visualized mastoid sinuses and visualized paranasal sinuses show nothing acute. Impression: 1. Soft tissue swelling within the frontal scalp. 2. No acute intracranial abnormality is appreciated. Diagnostic code #2 This report was dictated in MDT
--- NOTE | 2019-07-27 07:59 | CT ---
CT cervical spine Technique: Multiple axial sections were obtained from above C1 inferiorly to the bottom of T2. Reconstructed sagittal and coronal images were reviewed. Comparison: No prior cervical spine imaging. Findings: Mild kyphosis is seen most likely positional. Vertebral body heights and disc spaces are maintained. Vertebral bodies and posterior arches are intact. No fracture is seen. No bony central or bony neural foraminal stenosis is seen. No abnormal subluxation is seen. Impression: 1. Kyphosis most likely positional. 2. Nothing acute is appreciated on CT study of the cervical spine. Diagnostic code #2 This report was dictated in MDT
--- NOTE | 2019-07-27 08:01 | CT ---
CT facial bones Technique: Multiple axial sections through the facial bones were obtained. Reconstructed coronal and sagittal images were obtained. Comparison: No prior facial bone imaging. Findings: Mastoid sinuses and middle ear cavities are clear. Paranasal sinuses are clear. Right and left globes are symmetric. Plate and screws are noted within the left maxillary sinus which appeared to be old. No acute facial bone fracture is appreciated. Impression: 1. Plate and screws within the left maxillary sinus. 2. Nothing acute is appreciated on CT study of the facial bones. Diagnostic code #2 This report was dictated in MDT
== END 2019-07-27 09:07 | disposition home or self-care (01) ==
LOC: JD.ED 06:24
DX: S00.03XA Contusion of scalp, initial encounter (principal); S00.33XA Contusion of nose, initial encounter; S00.81XA Abrasion of other part of head, initial encounter; Z23 Encounter for immunization; Y04.0XXA Assault by unarmed brawl or fight, initial encounter; Z88.1 Allergy status to other antibiotic agents
CPT/HCPCS: 70450; 70450-26; 70486; 70486-26; 72125; 72125-26; 90471; 90715; 99283; 99284-25; A9270-GY

== ENCOUNTER 2022-01-25 02:28 | Emergency (ER) | payer MEDICAID ==
[2022-01-25] MEDS ORDERED: Etomidate 2 MG/ML 20 ML SDV IVPUSH ONE (02:29)
[2022-01-25] MEDS ORDERED: Rocuronium 50 MG/5 ML Vial IV ONE (02:29)
[2022-01-25] MEDS ORDERED: LORazepam 2 MG/ML SDV ONE (02:39)
[2022-01-25] MEDS ORDERED: fentaNYL 100 MCG/2 ML SDV ONE ×2 (02:40→12:02)
[2022-01-25 03:12] LABS: ESTIMATED GFR 119 mL/min (>60)
[2022-01-25] MEDS ORDERED: propofoL 100 ML ONE ×2 (03:28→09:52)
[2022-01-25] MEDS: propofoL 100 ML IV SCH ×2 (04:59→09:55)
[2022-01-25] MEDS ORDERED: Lidocaine 1% with EPINEPHrine 1:100,000 10 ML MDV INJECT ONE (06:50)
[2022-01-25] MEDS ORDERED: fentaNYL 100 MCG/2 ML SDV IVPUSH ONE ×3 (07:03→12:03)
[2022-01-25] MEDS ORDERED: Lidocaine 1% with EPINEPHrine 1:100,000 20 ML MDV INJECT ONE (09:14)
[2022-01-25] MEDS ORDERED: Lidocaine 1% with EPINEPHrine 1:100,000 10 ML MDV ONE (09:28)
[2022-01-25] MEDS: Potassium Chloride 10 MEQ in Premix Bag 1 BAG IV SCH ×4 (09:40→13:39)
[2022-01-25] MEDS ORDERED: Sodium Chloride 0.9% 1,000 ML IV SCH (12:15)
[2022-01-25] MEDS ORDERED: Sodium Chloride 0.9% 10 ML Syringe FLUSH PRN (12:52)
[2022-01-25] MEDS ORDERED: Iopamidol 612 MG/ML 50 ML SDV IVPUSH ONE (12:52)
[2022-01-25] MEDS ORDERED: Iopamidol 612 MG/ML 100 ML Bottle IVPUSH ONE (12:52)
[2022-01-25] MEDS ORDERED: Metoclopramide 10 MG/2 ML SDV IVPUSH ONE (13:46)
[2022-01-25] MEDS ORDERED: Ketorolac 15 MG/ML SDV IVPUSH ONE (23:15)
[2022-01-26] MEDS: Ibuprofen 600 MG Tab PO PRN ×2 (01:15→06:06)
== END 2022-01-26 07:12 | disposition home or self-care (01) ==
LOC: JD.ED 02:28
DX: S02.2XXA Fracture of nasal bones, initial encounter for closed fracture (principal); S01.01XA Laceration without foreign body of scalp, initial encounter; S01.112A Laceration without foreign body of left eyelid and periocular area, initial encounter; E87.6 Hypokalemia; F10.920 Alcohol use, unspecified with intoxication, uncomplicated; Z88.0 Allergy status to penicillin; Y04.0XXA Assault by unarmed brawl or fight, initial encounter
CPT/HCPCS: 12001; 12013; 31500; 36415; 43752; 51702; 70450; 70450-26; 70486; 70486-26; 71045; 71045-26; 71260; 71260-26; 72125; 72125-26; 74177; 74177-26; 80053; 80307; 84702; 85025; 96361; 96365; 96366; 96375; 96376; 99285-25; A9270-GY; J2704; J2765; J3010; J3480; J3490; J7030; Q9967